=== PATIENT | female | born 1985 | race Caucasian/White ===

== ENCOUNTER 2019-05-02 03:17 | Emergency (ER) | payer OTHER ==
[~2019-05-02] VITALS: Ht 167.6 cm; Wt 59.0 kg
[2019-05-02 03:48] VITALS: BP 126/80
== END 2019-05-02 04:36 | disposition home or self-care (01) ==
LOC: ER 03:25
DX: Z77.21 Contact with and (suspected) exposure to potentially hazardous body fluids (principal)
CPT/HCPCS: 36415; 86703; 86706; 86803

== ENCOUNTER 2019-07-13 01:17 | Emergency (ER) | payer OTHER ==
[~2019-07-13] VITALS: Ht 165.1 cm; Wt 56.7 kg
[2019-07-13 03:37] LABS: Hepatitis B Surface Antibody Positive
[2019-07-13 03:56] LABS: Hepatitis B Surface Antigen Negative (Negative)
== END 2019-07-13 05:50 | disposition home or self-care (01) ==
LOC: EEVIPCON 01:19 → ER 01:19
DX: Z77.21 Contact with and (suspected) exposure to potentially hazardous body fluids (principal); W19.XXXA Unspecified fall, initial encounter; Y93.89 Activity, other specified; Y99.0 Civilian activity done for income or pay; Y92.239 Unspecified place in hospital as the place of occurrence of the external cause
CPT/HCPCS: 36415; 86703; 86706; 86803; 87340